=== PATIENT | female | born 1995 | race Caucasian/White ===

== ENCOUNTER → 2018-05-15 11:25 | Outpatient (CLI) | payer OTHER, SELFPAY ==
[2018-05-15 17:48] LABS: Chlamydia Trachomatis by PCR Negative (Negative); Neisserai gonorrhoeae by PCR Negative (Negative); Probe Check PASS; Sample Adequacy Control PASS; Specimen Processing Control PASS
== END ==
PROVIDERS: Visit Provider Obstetrics & Gynecology
DX: Z11.3 Encounter for screening for infections with a predominantly sexual mode of transmission (principal)
CPT/HCPCS: 87491; 87591

== ENCOUNTER 2018-05-16 08:15 | Emergency (ER) | payer OTHER, SELFPAY ==
[2018-05-16 08:16] VITALS: BP 119/87; PULSE 124; RESP 18; TEMP 36.1; O2SAT 99; BMI 17.6
--- NOTE | 2018-05-16 08:28 | ED.VISSUMM ---
- ER Visit Summary Date of Service: 05/16/18 Chief Complaint: Nausea and vomiting History of Present Illness: The patient is a 22 F at 6 weeks by first trimester ultrasound presenting with nausea, vomiting, and diarrhea for 24 hours. She has had issues with vomiting daily since discovering that she was . She had an ultrasound yesterday that confirmed a 6 week live intrauterine . She has vomited at least 10 times in the past 24 hours now. She has no vaginal bleeding, discharge, or pelvic pain. Physical Examination: Vitals are within normal limits except for slight tachycardia. Mucous membranes are dry. She has no abdominal tenderness. No flank tenderness. Test Results: CMP within normal limits. Albumin is 4.2, which is reassuring. Urine does contain ketones consistent with mild dehydration Emergency Department Course and Treatment: She was given 2 L of IV fluid and antiemetics. She had complete resolution of symptoms. She is tolerating p.o. without difficulty. Treatment Plan: We discussed hospitalization however she would prefer to go home and is feeling much better. Given her well appearance and rapid improvement, I think this is safe. Her heart rate was 124 on arrival and is now 84. She looks well. 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 I did discuss the case with the on-call FILM PROCESSING SHIFT SUPERVISOR physician to arrange close follow-up. She will return if worse. Disposition: Home stable condition Impression: Initial encounter hyperemesis gravidarum in first trimester This note was generated with [employer] dictation software. It may contain incorrect words, spelling, and punctuation that were not noted in review of the chart prior to signing ED Disposition - Plan for ED Patient: Chief Complaint: Nausea/Vomiting Instructions: ED Preg Morning Sickness Referrals: Millie Zhang MD [STAFF PHYSICIAN] - 05/19/18
[2018-05-16] MEDS: proMETHazine 25 MG/ML Syringe 6.25 MG IV (08:41)
[2018-05-16] MEDS: 0.9% Normal Saline 1,000 ML 1000 ML IV (08:41)
[2018-05-16 08:59] LABS: ALB/GLOB Ratio 1.1 RATIO (0.9-2.4); AST(SGOT) 13 U/L (15-37); Alanine Aminotransfer ALT/SGPT 22 U/L (13-56); Albumin, Serum 4.2 g/dL (3.2-5.0); Alkaline Phosphatase 65 U/L (45-117); Anion Gap 14 (5-15); BUN 11 mg/dL (7-18); BUN/Creat Ratio 17.1 RATIO (10-20); Chloride 101 mmol/L (98-107); Creatinine, Serum 0.64 mg/dL (0.55-1.02); EST Glomerular Filtration Rate 120 mL/min (>60); Est Glom Filt Rate - Afr Amer 145 mL/min (>60); Estimated Creatinine Clearance 102.88 ml/min; Globulin 3.8 g/dL (2.2-4.2); Glucose 92 mg/dL (74-106); Potassium 3.8 mmol/L (3.5-5.1); Sodium Level 137 mmol/L (136-145)
[2018-05-16] MEDS: 0.9% Normal Saline 1,000 ML 999 ML IV (09:50)
[2018-05-16 09:59] LABS: Red Blood Cells-Urine 0 SEEN /hpf (0-5); White Blood Cells 0 SEEN /hpf (0-5)
[2018-05-16 10:02] LABS: Color, Urine Yellow (Yellow); Glucose, Dipstick Normal (Normal); Leukocyte Esterase-Dipstick Negative /ul (Negative); Nitrite-Dipstick Negative (Negative); Occult Blood-Urine Negative /ul (Negative); Protein-Dipstick 30 mg/dl (Negative); Urine Bilirubin Dipstick Negative (Negative); Urine Clarity Sl. Cloudy (Clear); Urine Urobilinogen Normal (Normal)
[2018-05-16 10:07] LABS: Ketone-Dipstick 150 mg/dl (Negative)
[2018-05-16 10:09] LABS: Bacteria 1+ /hpf (None Seen); Mucous, Urine 1+ /hpf (<or=2+); Squamous Epithelial Cells - UA 0-5 SEEN /hpf (5-10)
[2018-05-16 10:18] VITALS: RESP 16
[2018-05-16] MEDS: Ondansetron 4 MG/2 ML Vial IV (10:25)
[2018-05-16 10:27] VITALS: BP 110/67; PULSE 84; RESP 17; O2SAT 100
[2018-05-16 10:58] VITALS: PULSE 85; RESP 17; O2SAT 100
== END 2018-05-16 11:00 | disposition home or self-care (01) ==
LOC: ED 08:51
PROVIDERS: Emergency Provider Emergency Medicine
DX: O21.0 Mild hyperemesis gravidarum (principal); Z3A.01 Less than 8 weeks gestation of pregnancy
CPT/HCPCS: 80053; 81001; 99283; J7030; A4216; J2405

== ENCOUNTER → 2018-06-26 14:02 | Outpatient (CLI) | payer OTHER, SELFPAY ==
[2018-06-26 15:51] LABS: Color, Urine Yellow (Yellow); Glucose, Dipstick Normal (Normal); Leukocyte Esterase-Dipstick Negative /ul (Negative); Nitrite-Dipstick Negative (Negative); Occult Blood-Urine Negative /ul (Negative); Protein-Dipstick Negative (Negative); Urine Bilirubin Dipstick Negative (Negative); Urine Clarity Sl. Cloudy (Clear); Urine Urobilinogen Normal (Normal)
[2018-06-26 15:53] LABS: Absolute Lymphocyte Count 1.76 X10^3/ul (0.83-4.51); Basophil# 0.03 X10^3/uL; Basophil% 0.4 % (0-1); Eosinophil# 0.01 X10^3/uL; Eosinophils% 0.1 % (0-5); Hematocrit 36.6 % (37-47); Hemoglobin 12.2 g/dl (12.0-15.0); Lymphocyte # 1.76 X10^3/ul (4.0); Lymphocyte % 21.5 % (19-41); Mean Corp Hgb Conc 33.3 g/gl (32-36); Mean Corpuscular Hgb 28.4 pg (27.0-32.0); Mean Corpuscular Volume 85.1 fL (81-99); Mean Platelet Vol. 9.9 fl (6.2-12.0); Monocyte# 0.34 X10^3/uL; Monocyte% 4.2 % (0-10); Neutrophil # 6.03 X10^3/uL (2.7-7.7); Neutrophil % 73.6 % (47-70); Platelet Count 201 K/mm3 (150-450); White Blood Count 8.2 K/mm3 (4.4-11.0)
[2018-06-26 16:06] LABS: Ketone-Dipstick 150 mg/dl (Negative); POSITIVE COUNT NO; POSITIVE DIFFERENTIAL NO; POSITIVE MORPHOLOGY NO
[2018-06-26 16:11] LABS: Thyroid Stim Hormone (TSH) 2.32 uIU/mL (0.358-3.74)
[2018-06-26 16:16] LABS: Amphetamine Urine VISTA NEGATIVE (<1000 ng/mL); Barbiturate Urine VISTA NEGATIVE (< 200 ng/mL); Benzodiazepine Urine VISTA NEGATIVE (< 200 ng/mL); Cocaine Urine VISTA NEGATIVE (< 300 ng/mL); Ecstacy Urine VISTA NEGATIVE (< 500 ng/mL); Methadone Urine VISTA NEGATIVE (< 300 ng/mL); PCP Urine VISTA NEGATIVE (< 25 ng/mL); THC Urine VISTA NEGATIVE (< 50 ng/mL); Vista UDS pH Range 6
[2018-06-26 16:50] LABS: HIV - WCH Non-Reactive (Nonreactive); Rubella IgG 31.7 IU/mL; Vitamin D,25 Hydroxy 21.4 ng/mL (29.95-100.01)
[2018-06-27 01:58] LABS: Prenatal RPR NONREACTIVE (NONREACTIVE)
[2018-06-30 11:52] LABS: HEPATITIS B SURFACE AG Negative (Negative); Hep C Antibodies <0.1 s/co ratio (0.0-0.9)
== END ==
PROVIDERS: Visit Provider Obstetrics & Gynecology
DX: Z34.81 Encounter for supervision of other normal pregnancy, first trimester (principal)
CPT/HCPCS: 36415; 80307; 81002; 82306; 84443; 85025; 86703; 86762; 86803; 87340

== ENCOUNTER → 2018-10-20 08:48 | Outpatient (CLI) | payer OTHER, SELFPAY ==
[2018-10-20 13:25] LABS: Hematocrit 35.6 % (37-47); Hemoglobin 11.6 g/dl (12.0-15.0); Mean Corp Hgb Conc 32.6 g/gl (32-36); Mean Corpuscular Hgb 28.5 pg (27.0-32.0); Mean Corpuscular Volume 87.5 fL (81-99); Mean Platelet Vol. 10.1 fl (6.2-12.0); Platelet Count 208 K/mm3 (150-450); RBC Distribution Width CV 12.7 % (11.6-14.6); RBC Distribution Width SD 40.8 fl (35.1-43.9); Red Blood Count 4.07 M/mm3 (4.2-5.4); Scan Indicated on CBC? Y/N NO; White Blood Count 8.8 K/mm3 (4.4-11.0)
[2018-10-20 13:41] LABS: Glucose Challenge Gest 1H 50g 89 mg/dL (70-140)
[2018-10-20 13:57] LABS: Vitamin D,25 Hydroxy 10.3 ng/mL (29.95-100.01)
== END ==
PROVIDERS: Visit Provider Obstetrics & Gynecology
DX: Z34.83 Encounter for supervision of other normal pregnancy, third trimester (principal)
CPT/HCPCS: 36415; 82306; 82950; 85027

== ENCOUNTER → 2018-12-11 11:07 | Outpatient (CLI) | payer OTHER, SELFPAY | PROVIDERS: Referring Provider Obstetrics & Gynecology; Visit Provider Obstetrics & Gynecology | DX: Z36.85 Encounter for antenatal screening for Streptococcus B (principal) | CPT/HCPCS: 87081 ==

== ENCOUNTER 2019-01-06 07:30 | Inpatient (IN) | payer OTHER, SELFPAY ==
[2019-01-06 07:58] VITALS: BMI 23.8
[2019-01-06] MEDS: Lactated Ringers 1,000 ML 50 ML IV ×2 (08:15→09:12)
[2019-01-06 08:33] LABS: Absolute Lymphocyte Count 2.21 X10^3/ul (0.83-4.51); Absolute Neutrophil Count 3.8 X10^3/uL (2.0-7.7); Basophil# 0.04 X10^3/uL; Basophil% 0.6 % (0-1); Eosinophil# 0.05 X10^3/uL; Eosinophils% 0.8 % (0-5); Hemoglobin 11.3 g/dl (12.0-15.0); Lymphocyte # 2.21 X10^3/ul (4.0); Lymphocyte % 33.4 % (19-41); Mean Corp Hgb Conc 34.2 g/gl (32-36); Mean Corpuscular Hgb 27.4 pg (27.0-32.0); Mean Corpuscular Volume 80.1 fL (81-99); Mean Platelet Vol. 10.4 fl (6.2-12.0); Monocyte# 0.51 X10^3/uL; Monocyte% 7.7 % (0-10); Neutrophil # 3.77 X10^3/uL (2.7-7.7); Neutrophil % 56.9 % (47-70); Platelet Count 169 K/mm3 (150-450); RBC Distribution Width CV 13.7 % (11.6-14.6); RBC Distribution Width SD 39.3 fl (35.1-43.9); Red Blood Count 4.12 M/mm3 (4.2-5.4); White Blood Count 6.6 K/mm3 (4.4-11.0)
[2019-01-06 08:34] LABS: POSITIVE COUNT NO; POSITIVE DIFFERENTIAL NO; POSITIVE MORPHOLOGY NO
[2019-01-06] MEDS: Oxytocin 30 units/NS 500 ml 30 UNITS/500 ML IV.SOLN IV (08:48)
--- NOTE | 2019-01-06 13:20 | PCM.PN.BLA ---
Progress Note LABOR PROGRESS NOTE Induction, 40 wk EGA AVSS Pitocin at 12 mIU/min EFM: 120-140s avg variability. Accels. Reassuring ,category I tracing UCs q 2-5 mins. Cervix 4 cm. epidural just placed A/P 40 wk induction of labor. Early active labor. Epidrual placed. continue Pitocin anticipate
[2019-01-06] MEDS: fentaNYL-bupivacaine (epidural) 100 ML BAG EPIDURAL (13:21)
[2019-01-06] MEDS: Ondansetron 4 MG/2 ML Vial IV (14:06)
[2019-01-06] MEDS: Oxytocin 30 units/NS 500 ml 30 UNITS/500 ML IV.SOLN 334 UNITS IV (15:33)
--- NOTE | 2019-01-06 15:48 | PCM.OPRPT ---
Vaginal Delivery Maternal Presentation: Elective Induction 40 weeks admitted for pitocin induction of labor Method of Induction: Pitocin Amniotic Membrane Rupture Type: Artificial Rupture of Membrane time: 0900 Amniotic Fluid Description: Clear Final NATALY: 01/06/19 Final NATALY Source: US <20 weeks Gestational age: 40 Weeks and 0 Days Date of Procedure: 01/06/19 Pre-Operative Diagnosis: labor Post-Operative Diagnosis: same Surgery/ Procedure Performed: Spontaneous Vaginal Delivery Anesthesiologist: Jake Montemayor Type of Anesthesia: Epidural Description of Procedure: Progressed to FD then pushed for 3 contractions to deliver a live male over an intact perineum. Cervix and vagina intact. Placenta delivered spontaneously intact. Delayed cord clamping employed. Presentation: Vertex Placental Delivery Description: Spontaneous Placenta Disposition: [facility] Percentage of Placenta Abruption: 0 Cord Vessel Description: 3 Vessels Nuchal Cord Compression: Without compression Cord Entanglement: None Drain: [place] to straight drain Estimated Blood Loss: 200cc A gender: Male (1 minute): 9 (5 minute): 9 Episiotomy Description: None Laceration: None Medications given after delivery: IV Pitocin Complications: None
--- NOTE | 2019-01-06 15:53 | DCINST_ITS ---
Discharge Diet: No Restrictions Discharge Activity: Return to Normal Activity, May Drive, May Shower Return to work on:: 03/08/19 May shower in (days): 0 May resume sexual activity in: 4-6 weeks Call your doctor if your incision/area has: Sudden Increased Bleeding, Increased Pain/ Swelling, Foul Smelling Discharge Call your doctor if you observe: Fever of 101 or Higher, Inability to urinate, Inability to have a bowel movement, Using more than one pad per hour, Shortness of breath, Chest pain, Calf discomfort, Uncontrolled pain Cleanse incision/area with: Soap & Water Additional Instructions: If you experience any of the following, contact your healthcare provider. * Bleeding that soaks a pad every hour for 2 hours * Fever 100.4 or higher * Unrelieved incision or abdominal pain * Swelling, redness, discharge or bleeding from your incision or episiotomy site * Your incision begins to separate * Problems urinating (including inability to urinate or burning while urinating). * Visual changes * Severe headache * Flu-like symptoms * Pain or redness in one of both of your breasts * Pain, warmth, tenderness or swelling in your legs, especially the calf area * Frequent nausea and vomiting * Symptoms of depression or anxiety If you experience any of the following, call 911 or go to the nearest Emergency Room. * Chest pain * Problems breathing * Seizure activity * Partial or complete paralysis of a body part, slurred speech, weakness or drooping of the face, or a sudden inability to walk or hold your balance Allergies/Adverse Reactions: Allergies No Known Allergies Allergy (Verified 05/16/18 08:17) Medications to take at Discharge Vits [Prenatabs FA ] 1 tablet PO DAILY 08/15/16 Ibuprofen 600 mg PO 4X/DAY #30 tab 01/06/19 Ibuprofen [Motrin] 600 mg PO Q6H PRN PRN tablet 01/06/19 The following prescriptions were given: Ibuprofen 600 mg PO 4X/DAY #30 tab Please Follow Up With: Millie Zhang MD When: 6 weeks Primary Care Physician: Care Physician,No Primary [Primary Care Provider] - Test Results: Test results from this visit will be discussed in further detail at your follow- up appointment, if applicable. Proposed Discharge Date: 01/08/19
[2019-01-06] MEDS: Oxytocin 30 units/NS 500 ml 30 UNITS/500 ML IV.SOLN 167 UNITS IV (16:03)
--- NOTE | 2019-01-06 20:30 | NURSING ---
Pt up to void x1, emptied bladder.
[2019-01-06 20:35] VITALS: BP 118/69; PULSE 77; RESP 18; TEMP 36.4; O2SAT 97
[2019-01-06] MEDS: Ibuprofen 600 MG Tablet PO (21:04)
[2019-01-06 23:50] VITALS: BP 120/58; PULSE 73; RESP 18; TEMP 36.3; O2SAT 98
[2019-01-06] MEDS: Acetaminophen 500 MG Tablet 1000 MG PO (23:53)
[2019-01-07 04:00] VITALS: BP 132/77; PULSE 60; RESP 18; TEMP 37.2; O2SAT 98
[2019-01-07 05:44] LABS: Hematocrit 30.7 % (37-47); Hemoglobin 9.9 g/dl (12.0-15.0); Mean Corp Hgb Conc 32.2 g/gl (32-36); Mean Corpuscular Hgb 25.8 pg (27.0-32.0); Mean Corpuscular Volume 80.2 fL (81-99); Mean Platelet Vol. 10.4 fl (6.2-12.0); Platelet Count 179 K/mm3 (150-450); RBC Distribution Width CV 13.5 % (11.6-14.6); RBC Distribution Width SD 38.6 fl (35.1-43.9); Red Blood Count 3.83 M/mm3 (4.2-5.4); White Blood Count 11.2 K/mm3 (4.4-11.0)
[2019-01-07 05:45] LABS: Scan Indicated on CBC? Y/N NO
--- NOTE | 2019-01-07 07:49 | PCM.PN.OB ---
Subjective: NO specific complaints. Bleeding light. Breast feeding. Objective: Afeb VSS Hgb stable - Physical Exam General: Alert, Oriented x3, Cooperative, No apparent distress Lungs: Clear to auscultation, Normal air movement Cardiovascular: Regular rate, Regular Rhythm Abdomen: Soft, Non Tender, Non-Distended Extremities: No edema Skin: No rashes Neurological: Neuro grossly intact Psych/Mental Status: Normal Affect Comment: Lochia appropriate Vital Signs Temp Pulse Resp BP Pulse Ox 98.9 F 60 18 132/77 H 98 01/07/19 04:00 01/07/19 04:00 01/07/19 04:00 01/07/19 04:00 01/07/19 04:00 Oxygen Delivery Method Room Air Weight: 143 lb 4 oz Body Mass Index (BMI) 23.8 Intake and Output for Last 24 Hours 01/05/19 01/06/19 01/07/19 23:59 23:59 23:59 Intake Total 3180 / 3180 Output Total 1550 / 1550 600 / 600 Balance 1630 / 1630 -600 / -600 Laboratory Tests Past 24 Hrs 01/06/19 01/06/19 01/07/19 08:20 08:20 05:35 WBC 6.6 11.2 H RBC 4.12 L 3.83 L Hgb 11.3 L 9.9 L Hct 33.0 L 30.7 L MCV 80.1 L 80.2 L MCH 27.4 25.8 L MCHC 34.2 32.2 RDW 13.7 13.5 RDW Differential 39.3 38.6 Plt Count 169 179 MPV 10.4 10.4 Immature Gran % (Auto) 0.600 Neut % (Auto) 56.9 Lymph % (Auto) 33.4 [place] % (Auto) 7.7 Eos % (Auto) 0.8 Baso % (Auto) 0.6 Absolute Neuts (auto) 3.8 Absolute Lymphs (auto) 2.21 Total Counted Not Reportable Blood Type O POSITIVE Antibody Screen NEGATIVE Medical Necessity - Tobacco Use Smoking Status: Never smoker Assessment/Plan All Active Problems (normal spontaneous vaginal delivery) (Acute) 41 weeks gestation of (Acute) Doing well on PP day#1. May wish discharge later this afternoon. Home going instructions and warnings given.
--- NOTE | 2019-01-07 07:51 | PCM.DC.SUM ---
Discharge Date and Diagnosis Date of Admission: 01/06/19 Date of Discharge: 01/07/19 - Primary Discharge Diagnosis S/P Hospital Course and Treatment Operations: None Procedures: - - Epidural, Summary of Care Provided: The patient is a 23 year old F [admitted at 40 weeks in active labor. Progressed to FD then pushed for a short time to deliver a live male without complication. Post course unremarkable. Discharged home on PP day#1.] - Physical Exam Vital Signs Temp Pulse Resp BP Pulse Ox 98.9 F 60 18 132/77 H 98 01/07/19 04:00 01/07/19 04:00 01/07/19 04:00 01/07/19 04:00 01/07/19 04:00 Oxygen Delivery Method Room Air Weight: 143 lb 4 oz Body Mass Index (BMI) 23.8 Intake and Output for Last 24 Hours 01/05/19 01/06/19 01/07/19 23:59 23:59 23:59 Intake Total 3180 / 3180 Output Total 1550 / 1550 600 / 600 Balance 1630 / 1630 -600 / -600 Laboratory Tests Past 24 Hrs 01/06/19 01/06/19 01/07/19 08:20 08:20 05:35 WBC 6.6 11.2 H RBC 4.12 L 3.83 L Hgb 11.3 L 9.9 L Hct 33.0 L 30.7 L MCV 80.1 L 80.2 L MCH 27.4 25.8 L MCHC 34.2 32.2 RDW 13.7 13.5 RDW Differential 39.3 38.6 Plt Count 169 179 MPV 10.4 10.4 Immature Gran % (Auto) 0.600 Neut % (Auto) 56.9 Lymph % (Auto) 33.4 [place] % (Auto) 7.7 Eos % (Auto) 0.8 Baso % (Auto) 0.6 Absolute Neuts (auto) 3.8 Absolute Lymphs (auto) 2.21 Total Counted Not Reportable Blood Type O POSITIVE Antibody Screen NEGATIVE Discharge Diet: No Restrictions Discharge Activity: Return to Normal Activity, May Drive, May Shower Return to work on:: 03/08/19 May shower in (days): 0 May resume sexual activity in: 4-6 weeks Call your doctor if your incision/area has: Sudden Increased Bleeding, Increased Pain/ Swelling, Foul Smelling Discharge Call your doctor if you observe: Fever of 101 or Higher, Inability to urinate, Inability to have a bowel movement, Using more than one pad per hour, Shortness of breath, Chest pain, Calf discomfort, Uncontrolled pain Cleanse incision/area with: Soap & Water Home Medications: Medications to take at Discharge RX: Vits [Prenatabs FA ] 1 tablet PO DAILY 08/15/16 RX: Ibuprofen 600 mg PO 4X/DAY #30 tab 01/06/19 RX: Ibuprofen [Motrin] 600 mg PO Q6H PRN PRN tablet 01/06/19 Following Prescrptions Were Given to Patient: RX: Ibuprofen 600 mg PO 4X/DAY #30 tab Primary Care Physician: Care Physician,No Primary [Primary Care Provider] - Please Follow Up With: Millie Zhang MD When: 6 weeks Disposition: Home Minutes spent on discharge:: 15 Patient Condition:: Good Medical Necessity - Tobacco Use Smoking Status: Never smoker Meaningful Use Info Meaningful Use Diagnoses (Choose all that apply): None applicable
[2019-01-07 08:00] VITALS: BP 109/67; PULSE 71; RESP 16; TEMP 36.4; O2SAT 99
[2019-01-07] MEDS: Prenatal Vits Tablet 1 TABLET PO (09:06)
[2019-01-07] MEDS: Acetaminophen 500 MG Tablet 1000 MG PO (09:09)
[2019-01-07] MEDS: Dibucaine 30 GM Tube 1 APPLIC TOPICAL (09:28)
[2019-01-07 12:00] VITALS: BP 108/69; PULSE 72; RESP 16; TEMP 36.4; O2SAT 98
--- NOTE | 2019-01-07 12:59 | NURSING ---
Perineal edema improved greatly. Using dibucaine for discomfort
[2019-01-07] MEDS: Ibuprofen 600 MG Tablet PO (16:03)
[2019-01-07 18:18] VITALS: BP 110/68; PULSE 74; RESP 16; TEMP 36.7; O2SAT 99
--- NOTE | 2019-01-12 19:15 | NURSING ---
Patient states she is doing well, denies any complications or complaints. States that her milk supply is better this time and is not having to use supplementation. Was satisfied with her care
== END 2019-01-07 18:10 | disposition home or self-care (01) | DRG 807 ==
PROVIDERS: Admitting Provider Obstetrics & Gynecology; Referring Provider Obstetrics & Gynecology; Visit Provider Obstetrics & Gynecology
DX: O80 Encounter for full-term uncomplicated delivery (principal); Z37.0 Single live birth; Z3A.40 40 weeks gestation of pregnancy; Z87.440 Personal history of urinary (tract) infections; Z87.442 Personal history of urinary calculi
CPT/HCPCS: 59025; 59050; 85025; 85027; 86850; 86900; 99218; J7120; G0378; J2405

== ENCOUNTER → 2019-02-12 11:29 | Outpatient (CLI) | payer OTHER, SELFPAY ==
[2019-02-19 16:40] LABS: HPV Reflexed? NOT INDICATED
== END ==
PROVIDERS: Visit Provider Obstetrics & Gynecology
DX: Z12.4 Encounter for screening for malignant neoplasm of cervix (principal)
CPT/HCPCS: 87624; 88175; G0145

== ENCOUNTER → 2019-09-02 11:34 | Outpatient (CLI) | payer OTHER, SELFPAY ==
[2019-09-02 12:40] LABS: Hematocrit 41.9 % (37-47); Hemoglobin 13.7 g/dL (12.0-15.0); Mean Corp Hgb Conc 32.7 g/dL (32-36); Mean Corpuscular Hgb 27.2 pg (27.0-32.0); Mean Corpuscular Volume 83.1 fL (81-99); Mean Platelet Vol. 10.3 fl (6.2-12.0); Platelet Count 206 K/mm3 (150-450); RBC Distribution Width CV 13.4 % (11.6-14.6); RBC Distribution Width SD 40.8 fl (35.1-43.9); Red Blood Count 5.04 M/mm3 (4.2-5.4); White Blood Count 7.3 K/mm3 (4.4-11.0)
[2019-09-02 12:51] LABS: International Normalized Ratio 1.1; Partial Thromboplast Time 32.6 Seconds (24.1-36.2); Prothrombin Time (Protime)PT. 14.3 SECONDS (11.7-14.9)
== END ==
PROVIDERS: Visit Provider Obstetrics & Gynecology
DX: N92.0 Excessive and frequent menstruation with regular cycle (principal)
CPT/HCPCS: 36415; 84443; 85027; 85610; 85730

== ENCOUNTER 2020-01-14 06:06 | Day surgery (SDC) | payer OTHER, SELFPAY ==
[2020-01-12 15:19] LABS: Hematocrit 43.8 % (37-47); Hemoglobin 14.2 g/dL (12.0-15.0); Mean Corp Hgb Conc 32.4 g/dL (32-36); Mean Corpuscular Hgb 27.7 pg (27.0-32.0); Mean Corpuscular Volume 85.5 fL (81-99); Mean Platelet Vol. 10.5 fl (6.2-12.0); Platelet Count 206 K/mm3 (150-450); RBC Distribution Width CV 13.1 % (11.6-14.6); RBC Distribution Width SD 40.8 fl (35.1-43.9); Red Blood Count 5.12 M/mm3 (4.2-5.4); White Blood Count 6.6 K/mm3 (4.4-11.0)
[2020-01-12 15:30] LABS: International Normalized Ratio 1.2; Partial Thromboplast Time 30.8 Seconds (24.1-36.2); Prothrombin Time (Protime)PT. 14.2 SECONDS (11.7-14.9)
[2020-01-12 15:56] LABS: Ferritin 20 ng/mL (8-252); Iron 39 ug/dL (50-170); Iron Binding Capacity,Total 317 ug/dL (250-450); PERCENT IRON SATURATION 12.3 % (15.0-55.0)
--- NOTE | 2020-01-13 13:06 | PCM.HPOB.BLA ---
- Problem List (1) Abnormal uterine bleeding Status: Acute (2) Iron deficiency Status: Acute History and Physical Date of Admission: 01/14/20 Date: 01/12/2020 Name: JUD LOVE Age: 24 Date of : 1995 HISTORY OF PRESENT ILLNESS: On 01/12/2020, Jud Love, a 24 year old female 2 0 0 0 2, presented for: -- Jud is here for a preop. LMP 15/09/2018- constant bleeding since. Pt is on no medications and has NKDA. Sexually active, condoms as control. Procedure consents for hysteroscopy reviewed and signed. MK as above. Jud presents for preop for hysteroscopy, dilation and curettage scheduled on 01/14/20 for persistent abnormal bleeding. US 09/02/19 UTERUS: 9.2 x 5.2 x 5.2cm. ENDOMETRIAL ECHO: 5.6mm. RIGHT OVARY: 4.8 x 2.7 x 2.5cm. irregular cyst seen. multiple follicles seen. LEFT OVARY: 3.1 x 1.9 x 1.5cm. multiple follicles seen. BLADDER: No bladder masses visualized. FREE FLUID: MODERATE AMOUNT and seen around right ovary and adnexa. OTHER PERTINENT FINDINGS: bilateral ovarian follicles seen. ALLERGIES: No Known Drug Allergies MEDICATIONS HISTORY: Current medications prescribed by our practice are: 1. Vitamin D3 4,000 unit capsule, 1 daily Patient is also takin. No Meds REVIEW OF SYSTEMS: GENERAL - Denies fever, or chills SKIN - Denies skin changes EYES - Denies visual changes EARS - Denies difficulty hearing NOSE - Denies nasal congestion or bleeding MOUTH - Denies sore throat or difficulty swallowing NECK - Denies pain or swelling RESPIRATORY - Denies shortness of breath or wheezing CARDIOVASCULAR - Denies palpitations or chest pain GASTROINTESTINAL - Denies nausea, vomiting, diarrhea, constipation GENITOURINARY - Denies dysuria, frequency of urination, incontinence of urine MUSCULOSKELETAL - Denies joint or muscle pain NEUROLOGICAL - Denies localized numbness or weakness PSYCHIATRIC - Denies depression or anxiety ENDOCRINE - Denies heat or cold intolerance, weight loss or gain HEMATO-IMMUNOLOGIC - Denies excesive bleeding with cuts PAST HISTORY: Breast/Ovarian/Colon Cancers - Maternal Grandmother had Breast Cancer approximately age 40-50 Infections - Chicken pox, mono and HX. 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 kidney reflux surgery age 5, lots of UTIs 2. laser removal of tiny cyst in eye age 6 3. [place] Teeth Removal age 14 4. 11/18/2013 left desmoid tumor removed breast 5. 01/06/2014 two ribs partially removed desmoid grew into ribs 6. tommy breast lumps removed two different kinds of tumors MENSTRUAL HISTORY: LMP Known?- Approximate-Month Known, Regularity - Irregular, Frequency - variable days, LMP - 07/26/19, Age Onset Menarche - 11 PAST PREGNANCIES: Total Pregnancies - 2; Full Term Pregnancies - 2; Premature - 0; Abortions, Induced - 0; Abortions, Spontaneous - 0; Ectopics - 0; Multiple Births - 0; Living Children - 2 FAMILY HISTORY (OLD): FAMILY HISTORY: Mother - FH: Hypothyroidism; MaternalGrandparent - FH: Prostate cancer; MaternalGrandparent - FH: Malignant neoplasm of breast; SOCIAL HISTORY: Alcohol Use - socially not while Smoking - Never Diet - balanced Diet and zero caffeine Lifestyle - moderate stress lifestyle Exercise - active and enc walking 30 daily Seat Belt Use - always 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 Illicit Drug Use - denies use of street drugs Sexual Activity - Residence - lives with Place of - [place], [place] Hours Worked - 36 hrs per week Spouse-Sig Other Name - Benjamin Love Spouse-Sig Other Occupation - [employer] Spouse-Sig Other Phone No - [phone] Children Name(s) - Nasreen Lizarraga (07/2016), Lee() Control - condoms PHYSICAL EXAMINATION BP- 102/76 Sitting, Right arm, regular cuff Weight- 108.20 lbs Height- 65.00 inch BMI:18.04 CONSTITUTIONAL - NAD, well nourished, and well developed SKIN - No rash, lesions, or ulcers HEENT - Normocephalic, PERRLA, EOMI LUNGS - CTA x2 without wheezes, crackles or rales CARDIAC - Regular rate and rhythm without rubs, murmurs, or gallops ABDOMEN - Without hepatosplenomegaly, distention, masses, rebound, or guarding; normal bowel sounds; no hernias EXTREMITIES - No edema or calf tenderness NEUROLOGICAL - normal gait, normal balance, normal motor PSYCHIATRIC - A and O to time, place, person, mood and affect Labs & Testing WBC 6.6 K/mm3 (4.4-11.0) 01/12/20 14:25 RBC 5.12 M/mm3 (4.2-5.4) 01/12/20 14:25 Hgb 14.2 g/dL (12.0-15.0) 01/12/20 14:25 Hct 43.8 % (37-47) 01/12/20 14:25 MCV 85.5 fL (81-99) 01/12/20 14:25 MCH 27.7 pg (27.0-32.0) 01/12/20 14:25 MCHC 32.4 g/dL (32-36) 01/12/20 14:25 RDW Std Deviation 40.8 fl (35.1-43.9) 01/12/20 14:25 RDW Coeff of Cindy 13.1 % (11.6-14.6) 01/12/20 14:25 Plt Count 206 K/mm3 (150-450) 01/12/20 14:25 MPV 10.5 fl (6.2-12.0) 01/12/20 14:25 PT 14.2 SECONDS (11.7-14.9) 01/12/20 14:25 INR 1.2 01/12/20 14:25 APTT 30.8 Seconds (24.1-36.2) 01/12/20 14:25 Iron 39 ug/dL (50-170) L 01/12/20 14:25 TIBC 317 ug/dL (250-450) 01/12/20 14:25 Iron Saturation 12.3 % (15.0-55.0) L 01/12/20 14:25 Ferritin 20 ng/mL (8-252) 01/12/20 14:25 Blood Type O POSITIVE 01/12/20 14:40 Antibody Screen NEGATIVE 01/12/20 14:40 ASSESSMENT: PLAN BY DIAGNOSIS: 1. Excessive And Frequent Menstruation With Regular Cycle PAP 2019 NILM TSH, CBC, coags wnl Plan for hysteroscopy, dilation and curettage - procedural r/b/i reviewed Also offered endometrial ablation since plan no further childbearing and not interested in hormonal options - reviewed how performed, risk for scarring, occult malignancy and potential effects on future pregnnacy should occur. Contraceptive counseling performed - condoms planned Pt will consider ablation for future after discussion NPO @ [facility] prior to procedure, preop labs pending Consider course of Doxycycline postop
[2020-01-13 19:25] LABS: Probe Check PASS; SARS-COV-2 DNA by PCR Negative (Negative); Specimen Processing Control PASS
--- NOTE | 2020-01-14 | EMB_PTH ---
PATIENT: TRACEY RODRIGUEZ LOC: [facility] [place] U#:[id number] AGE/SX: 24/F ROOM: RE01/14/[address]: Dr. Millie Gomez MD : 1995 BED: DIS: 01/14/2020 SPEC #: [id number] RECD: 01/14/20 10:07 STATUS: BENJAMIN LUIS FERNANDO #: [id number] ANDREW: 01/14/20 00:[address]: Millie Ortiz DEPT: SURGICAL PATHOLOGY RECD BY: Ezio Salazar ENTERED: 01/14/20 10:07 SP TYPE: ENDOM BX/C RENA DR: No Primary Care Phys Tissues: Endometrium, NOS Procedures: Surgery Specimen Level IV HEADER OPERATION: Hysteroscopy, D & C, Britni PRE-OP DIAGNOSIS: Excessive and frequent menstruation TISSUE SUBMITTED: Endometrial curettings MICROSCOPIC DIAGNOSIS Endometrium, curettings: Transitional endometrium with mild disorder. Mild chronic endometritis. AM:julianna 01/15/20 MICROSCOPIC DESCRIPTION Slides are reviewed. GROSS DESCRIPTION Received in fixative is one container labeled with the patient's name and designated endometrial curettings. The specimen consists of multiple fragments of hemorrhagic mucoid tissue that in aggregate measure 3 x 2.5 x 0.3 cm. The specimen is totally submitted in one cassette. / SJ:julianna 01/14/20 TC:3 CPT: 42661
[2020-01-14 06:33] LABS: Internal QC Validated? YES +Cl - CLEAR BKGD; Pregnancy, Urine Negative Negative
[2020-01-14 06:46] VITALS: BP 115/76; PULSE 69; RESP 15; TEMP 36.6; O2SAT 100; BMI 18.3
[2020-01-14] MEDS: Lactated Ringers 1,000 ML 100 ML IV (06:57)
--- NOTE | 2020-01-14 08:09 | PCM.OPRPT ---
Problem List (1) Abnormal uterine bleeding Status: Acute (2) Iron deficiency Status: Acute Report of Operation Date of Procedure: 01/14/20 Pre-Operative Diagnosis: Excessive and frequent menstruation with irregular cycle. Iron deficiency Post-Operative Diagnosis: same Surgery/Procedure Performed:: 1. Hysteroscopy. 2. Dilation and curettage. 3. Britni endometrial ablation Description of Surgical Findings:: Normal uterine cavity and bilateral ostia Uterus sounded to 9cm merchandising execution manager: None Type of Anesthesia:: Local MAC Anesthesiologist: Domo Vargas Specimen's removed: endometrial curettings Estimated Blood Loss (mL): 5 Fluids Replaced: 500 ml Description of Procedure: Indications: 24-year-old 2 para 2 with a history of persistent daily bleeding since August. She had an ultrasound which demonstrated no anatomical abnormalities and declined hormonal therapy. She opted to proceed with surgical management. Her initial procedure was delayed due to the COVID19 pandemic and she continued to have symptoms with iron deficiency emerging. Will proceed with with hysteroscopy, dilation and curettage and endometrial ablation. Risks, benefits, indications and procedural alternatives were reviewed. Patient understands that is contraindicated following endometrial ablation. Procedure: Patient was taken to the operating room and signed and was performed. She is placed in a dorsal supine position and induced under MAC anesthesia. She was then repositioned into a dorsal lithotomy and an examination under anesthesia was performed. The perineum was prepped, straight catheterization of the bladder performed and she was draped in sterile fashion. The bivalve speculum was placed into the vagina and the cervix visualized. 1% lidocaine without epinephrine was placed at the anterior cervical lip and tenaculum placed. A paracervical block was administered for a total of 20 cc of 1% lidocaine utilized. The uterus was sounded and the cervix was subsequently dilated. Hysteroscopy was performed demonstrating normal uterine cavity. Hysteroscope was removed. Sharp curettage was performed and further hysteroscopy confirmed cavity integrity. The Britni endometrial ablation system was introduced into the uterine cavity and secured with cavity depth set at 4.5 cm. The cavity assessment was performed and ablation cycle completed uneventfully. The ablation device was removed and hysteroscopy again performed demonstrating global ablation of the endometrium. The patient was positioned into dorsal supine, awakened, and transferred to the recovery room without complication. Sponge and needle counts correct x2. The patient tolerated the procedure well. - Complications none - Admit VTE Documentation VTE Present on Admission: No VTE Mechan Device Prophylaxis: SCD's VTE Pharm Prophylaxis ordered?: No
[2020-01-14 08:18] VITALS: BP 108/69; BP 115/76; PULSE 103; RESP 16; TEMP 36.4; O2SAT 100
[2020-01-14 08:20] VITALS: BP 106/78; BP 115/76; PULSE 88; RESP 16; O2SAT 100
[2020-01-14 08:25] VITALS: BP 115/76; BP 119/76; PULSE 87; RESP 16; O2SAT 100
[2020-01-14 08:33] VITALS: BP 115/76; BP 120/80; PULSE 90; RESP 16; TEMP 36.6; O2SAT 100
--- NOTE | 2020-01-14 08:56 | DCINST_ITS ---
Discharge Diet: No Restrictions Discharge Activity: Return to Normal Activity, May Shower, - - No tub bath for 1-2 weeks May resume sexual activity in: 4 weeks Call your doctor if you observe: Fever of 101 or Higher, Inability to urinate, Inability to have a bowel movement, Using more than one pad per hour, Shortness of breath, Chest pain, Calf discomfort, Uncontrolled pain Allergies/Adverse Reactions: Allergies No Known Allergies Allergy (Verified 01/14/20 06:46) Medications to take at Discharge Ibuprofen 800 mg PO TID PRN #30 tab 01/14/20 Oxycodone [Oxyir] 5 mg PO Q6H PRN PRN 7 Days #5 tab 01/14/20 The following prescriptions were given: Ibuprofen 800 mg PO TID PRN #30 tab PRN Reason: pain Transmission Status: Received by [id number] Oxycodone [Oxyir] 5 mg PO Q6H PRN PRN 7 Days #5 tab PRN Reason: severe pain Transmission Status: Received by [id number] Primary Care Physician: Care Physician,No Primary [Primary Care Provider] - Test Results: Test results from this visit will be discussed in further detail at your follow- up appointment, if applicable. Please Follow Up With: Millie Zhang MD When: 4 weeks
[2020-01-14 09:03] VITALS: BP 115/76
== END 2020-01-14 09:21 | disposition home or self-care (01) ==
LOC: SDC 06:08 → AC 06:08
PROVIDERS: Anesthesiology; Referring Provider Obstetrics & Gynecology; Visit Provider Obstetrics & Gynecology
PROC: 0U5B8ZZ Destruction of Endometrium, Via Natural or Artificial Opening Endoscopic (ICD-10-PCS; CPT 58558; principal; 2020-01-14 07:20)
DX: N71.1 Chronic inflammatory disease of uterus (principal); Z11.59 Encounter for screening for other viral diseases
CPT/HCPCS: 58558; 36415; 81025; 82728; 83540; 83550; 85027; 85610; 85730; 86850; 86900; 86901; 87635; 88305; G2023; J7120; U0004